=== PATIENT | male | born 1985 | race Native Hawaiian/Other Pacific Islander ===

== ENCOUNTER 2016-12-06 07:48 | Emergency (ER) | payer OTHER ==
[~2016-12-06] VITALS: Ht 175.3 cm; Wt 86.2 kg
== END 2016-12-06 09:49 | disposition home or self-care (01) ==
LOC: ED 07:48
PROC: 2W3QX1Z Immobilization of Right Lower Leg using Splint (ICD-10-PCS; principal; 2016-12-06)
DX: S97.81XA Crushing injury of right foot, initial encounter (principal); W20.8XXA Other cause of strike by thrown, projected or falling object, initial encounter; Y92.69 Other specified industrial and construction area as the place of occurrence of the external cause
CPT/HCPCS: 99282; J0150

== ENCOUNTER 2021-04-05 12:29 | Emergency (ER) | payer BC ==
[~2021-04-05] VITALS: Ht 175.3 cm; Wt 90.7 kg
[2021-04-05 12:36] VITALS: TEMP 97.3
[2021-04-05 13:28] LABS: PLATELET COUNT 247 K/uL (142-355)
[2021-04-05 13:34] LABS: POTASSIUM 3.5 mmol/L (3.6-5.2)
[2021-04-05 13:46] LABS: PARTIAL THROMBOPLASTIN TIME 24.9 SECONDS (24.5-33.6)
[2021-04-05 14:01] VITALS: BP 151/91
== END 2021-04-05 14:57 | disposition home or self-care (01) ==
LOC: ED 12:29
PROVIDERS: Hospitalist
DX: I16.0 Hypertensive urgency (principal); E87.6 Hypokalemia
CPT/HCPCS: 36415; 80053; 82550; 83880; 84484; 85027; 85610; 85730; 93005; 99284; J0360